=== PATIENT | male | born 1980 | race Caucasian/White ===

== ENCOUNTER 2016-11-07 19:27 | Emergency (ER) | payer OTHER ==
[2016-11-07 19:43] VITALS: BP 153/93
[2016-11-07] MEDS ORDERED: Tetracaine HCl/PF 0.5% 4 ML Bottle EYERT ONE ×3 (19:48→19:51)
--- NOTE | 2016-11-07 20:37 | EDM.PDOC ---
ED HPI EYE COMPLAINT - General Chief Complaint: Eye Problems Stated Complaint: STICK IN RT EYE Time Seen by Provider: 11/07/16 19:44 Source: Reports: Patient History Limitations: Reports: No limitations - History of Present Illness INITIAL COMMENTS - FREE TEXT/NARRATIVE: History of present illness: [36-year-old male was working in the [address] and treat branch into his right eye. comes in with pain but no visual disturbance.] Review of systems: As per history of present illness and below otherwise all systems reviewed and negative. Past medical history: As per history of present illness and as reviewed below otherwise noncontributory. Surgical history: As per history of present illness and as reviewed below otherwise noncontributory. Social history: No reported history of drug or alcohol abuse. Family history: As per history of present illness and as reviewed below otherwise noncontributory. Physical exam: HEENT: Atraumatic, normocephalic, pupils equal round and reactive, , mucous membranes moist, throat clear, neck supple, nontender, trachea midline. Right eye: He had a woody foreign body under his right lower lid which was very easily removed with Q-tip. Nothing under the upper lid. He had an embedded within sliver just to the medial side of the limbus of the right eye. After tetracaine was applied this was removed with a Q-tip. He had a small flap of sclera that was irrigated out with a Jorge lens. His vision is 20/20 in that eye and 20/30 in the left eye. Lungs: Clear to auscultation, breath sounds equal bilaterally, chest nontender. Heart: S1S2, regular, negative for clicks, rubs, or JVD. Diagnostics: ] Therapeutics: [] Impression: [Foreign wooden bodies in right eye] Plan: [Erythromycin ointment is prescribed to be used half an inch to the right eye 3 times a day for 7 days and he is to followup with an city treasurer or strapper.] Definitive disposition and diagnosis as appropriate pending reevaluation and review of above. - Related Data Allergies/ADRs: Allergies No Known Allergies Allergy (Verified 11/07/16 19:41) Home Meds: Ambulatory Orders Medication Instructions Recorded Confirmed NK [No Known Home Meds] 11/07/16 11/07/16 Past Medical History - Past Health History Medical/Surgical History: Denies Medical/Surgical History Social & Family History - Tobacco Use Smoking Status *Q: Never Smoker - Caffeine Use Caffeine Use: Reports: Coffee - Recreational Drug Use Recreational Drug Use: No ED ROS GENERAL - Review of Systems Review Of Systems: See Below ED EXAM GENERAL W FULL EYE - Physical Exam Exam: See Below Course - Vital Signs Last Recorded V/S: Last Vital Signs Temp 36.4 C 11/07/16 19:43 Pulse 109 H 11/07/16 19:43 Resp 16 11/07/16 19:43 BP 153/93 H 11/07/16 19:43 Pulse Ox 97 11/07/16 19:43 - Orders/Labs/Meds Orders: Active Orders 24 hr Category Date Time Status Eye Irrigation [RC] ASDIRECTED Care 11/07/16 19:52 Active Meds: Medications Discontinued Medications Generic Name Dose Route Start Last Admin Trade Name Jeancarlos PRN Reason Stop Dose Admin Tetracaine HCl 5 ml 11/07/16 19:51 11/07/16 19:59 Tetracaine 0.5% Steri-Unit [employer] EYERT 11/07/16 19:52 Not Given ASDIRECTED ONE Tetracaine HCl 2 ml 11/07/16 19:51 11/07/16 19:59 Tetracaine 0.5% Steri-Unit [employer] EYERT 11/07/16 19:52 2 ml ASDIRECTED ONE Administration Departure - Departure Time of Disposition: 20:36 Disposition: Home, Self-Care 01 Condition: good Clinical Impression: Foreign body of right eye Qualifiers: Encounter type: initial encounter Qualified Code(s): T15.91XA - Foreign body on external eye, part unspecified, right eye, initial encounter Forms: ED Department Discharge Additional Instructions: You have been provided with erythromycin ointment and I am highly recommending that she follow up with an city treasurer or an strapper as soon as possible. You may not be able to do this until Wednesday but that should be okay as long your vision is okay not having significant pain. If your vision drops for your experiencing significant pain before Wednesday return to the ER - My Orders Last 24 Hours: My Active Orders 11/07/16 19:52 Eye Irrigation [RC] ASDIRECTED - Assessment/Plan Last 24 Hours: My Active Orders 11/07/16 19:52 Eye Irrigation [RC] ASDIRECTED
== END 2016-11-07 20:47 | disposition home or self-care (01) ==
LOC: JP.ED 19:27
DX: T15.91XA Foreign body on external eye, part unspecified, right eye, initial encounter (principal)
CPT/HCPCS: 99283